=== PATIENT | male | born 2000 | race Caucasian/White ===

== ENCOUNTER 2024-06-20 17:24 | Emergency (ER) | payer SELFPAY ==
--- NOTE | ~2024-06-20 | XR_ITS ---
XR chest 2V DATE: 06/20/2024 18:57 INDICATION: Chest pain TECHNIQUE: PA and lateral views COMPARISON: None FINDINGS: Normal heart size. No hilar or mediastinal enlargement. No pulmonary infiltrate or consol idation, pulmonary vascular congestion or pleural effusion or pneumothorax. IMPRESSION: No active cardiopulmonary disease Reviewed, dictated and finalized at location A. [employer]
--- NOTE | 2024-06-20 17:26 | ECG_ITS ---
Test Date: 2024-06-20 17:32:56 Measurements Intervals [place] Rate: 82 P: 74 HI: 158 QRS: 78 QRSD: 113 T: 62 QT: 344 QTc: 404 Interpretive Statements SINUS RHYTHM WITH SINUS ARRHYTHMIA INCOMPLETE RIGHT BUNDLE BRANCH BLOCK BASELINE ARTIFACT- I BORDERLINE ECG No previous ECG available for comparison Electronically Signed On 06-20-2024 18:23:21 DRILL PUNCH OPERATOR by Timur Cope D.O.
[2024-06-20 17:36] VITALS: BP 129/72; PULSE 83; RESP 20; TEMP 36.6; O2SAT 99
[2024-06-20 17:43] LABS: Basophils Percent Auto 0.6 % (0.2-1.2); Eosinophils Absolute Auto 0.1 K/mm3 (0-0.3); Eosinophils Percent Auto 1.7 % (0-4.4); Hemoglobin 14.1 g/dL (14.0-18.0); Immature Granulocyte Absolute 0.01 K/mm3 (0.00-0.031); Immature Granulocyte Percent A 0.2 % (0-0.5); Lymphocytes Absolute Auto 2.32 K/mm3 (0.9-3.2); Lymphocytes Percent Auto 34.8 % (18.3-44.2); Mean Corpuscular HGB Conc 32.8 g/dl (32-36); Mean Corpuscular Hemoglobin 30.5 pg (26-34); Mean Corpuscular Volume 92.9 fl (80-100); Mean Platelet Volume 9.7 fl (7.4-10.4); Monocytes Percent Auto 14.7 % (2.6-8.5); Neutrophils Absolute Auto 3.2 K/mm3 (1.3-6.7); Platelet Count Result 253 k/mm3 (150-375); Red Blood Count 4.63 M/mm3 (4.6-6.20); Red Cell Distribution Width 12.8 % (11.5-14.5); White Blood Count 6.7 K/mm3 (4.5-10.0)
[2024-06-20 17:52] LABS: Alanine Aminotransferase 50 U/L (6-50); Albumin Level 4.8 g/dL (3.5-5.1); Alkaline Phosphatase 92 U/L (38-126); Anion Gap 12 mmol/L (4-12); Aspartate Amino Transferase 78 U/L (17-59); Bilirubin,Total 0.4 mg/dL (0.2-1.3); Blood Urea Nitrogen 11 mg/dL (9-20); Calcium 9.2 mg/dL (8.4-10.2); Carbon Dioxide 27 mmol/L (22-30); Chloride 103 mmol/L (98-107); Estimated CRCL calculation 142 ml/min; Estimated Glomerular Filt Rate > 60; Glucose 91 mg/dL (65-110); Lipase 62 U/L (23-300); Potassium 3.7 mmol/L (3.4-5.0); Sodium 142 mmol/L (137-145)
[2024-06-20 17:53] LABS: Partial Thromboplastin Time 29.6 Seconds (22.3-36.8)
[2024-06-20 18:04] LABS: Troponin I < 0.012 ng/mL (0.000-0.034)
--- NOTE | 2024-06-20 22:06 | PC.NURSE ---
Patient came up to this RN and asked if he could eat. This RN states to patient he cannot eat. Patient then proceeded to walk outside to grab his [employer] order
[2024-06-20 22:20] VITALS: PULSE 65
[2024-06-20 22:21] VITALS: BP 108/72; PULSE 65; RESP 21; O2SAT 98
--- NOTE | 2024-06-20 22:22 | ECG_ITS ---
Test Date: 2024-06-20 22:35:28 Measurements Intervals [place] Rate: 67 P: 65 AR: 158 QRS: 79 QRSD: 120 T: 68 QT: 368 QTc: 391 Interpretive Statements SINUS RHYTHM INCOMPLETE RIGHT BUNDLE BRANCH BLOCK ST ELEVATION IN DIFFUSE LEADS- PROBABLY EARLY REPOLARIZATION BASELINE ARTIFACT- I, II, III, AVR, AVL, AVF BORDERLINE ECG Compared to ECG 06/20/2024 17:32:56 NO SIGNIFICANT CHANGE Electronically Signed On 06-21-2024 05:52:17 MANAGER CONTINUOUS IMPROVEMENT by Timur Cope D.O.
[2024-06-20] MEDS: ASPIRIN 81 MG CHEWABLE TABLET 324 MG PO (22:41)
[2024-06-20 22:42] VITALS: O2SAT 100
[2024-06-20 23:10] LABS: Troponin I < 0.012 ng/mL (0.000-0.034)
[2024-06-20 23:33] VITALS: BP 124/70; PULSE 71; RESP 12; O2SAT 99
[2024-06-20] MEDS: Please add drug allergy info to patient profile. 1 EACH XX (23:35)
[2024-06-20] MEDS: KETOROLAC 15 MG/ML VIAL (*BKC) IV PUSH (23:35)
--- NOTE | 2024-06-20 23:58 | ED.CHESTPAIN ---
HPI - Chest Pain General Chief Complaint: Chest Pain Stated Complaint: chest Pain X 1Week Time Seen by Provider: 06/20/24 22:45 History of Present Illness HPI narrative: 24-year-old male presents emergency department for left-sided chest pain for 6 days. Patient states the chest is worse when he takes a deep breath. He reports a cough for approximately 1 month. States the skin overlying his left chest wall is also tender. He denies fever, hemoptysis, radiating pain, exertional symptoms, shortness of breath, extremity edema, history of VTE. 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 Related Data Allergies Allergy/AdvReac Type Severity Reaction Status Date / Time No Known Allergies Allergy Verified 06/20/24 22:30 Review of Systems Review of Systems: All systems reviewed & are unremarkable except as noted in HPI and below Exam Narrative: GENERAL: Well-appearing, well-nourished, and in no acute distress. HEAD: Normocephalic, atraumatic. EYES: PERRLA and EOMI. ENT: Nares clear, no rhinorrhea or epistaxis. Mucous membranes moist. NECK: Supple. CHEST: Clear to auscultation. No respiratory distress. Tenderness to the left costosternal border with no overlying skin changes HEART: Regular rate and rhythm. No murmur heard. Normal peripheral pulses. ABDOMEN: Soft, nontender, nondistended, normal active bowel sounds. EXTREMITIES: Normal range of motion. No edema. negative Homans bilaterally SKIN: Warm, dry, no rash. NEURO: No focal deficits. Alert and oriented x3 Course Vital Signs Vital signs: Vital Signs Temperature 97.9 F 06/20/24 17:36 Pulse Rate 83 06/20/24 17:36 Respiratory Rate 20 06/20/24 17:36 Blood Pressure 129/72 06/20/24 17:36 Pulse Oximetry 99 06/20/24 17:36 Oxygen Delivery Room Air 06/20/24 17:36 Temperature 97.9 F 06/20/24 17:36 Pulse Rate 71 06/20/24 23:33 Respiratory Rate 12 06/20/24 23:33 Blood Pressure 124/70 06/20/24 23:33 Pulse Oximetry 99 06/20/24 23:33 Oxygen Delivery Room Air 06/20/24 22:42 MDM - Chest Pain MDM Narrative Medical decision making narrative: 24-year-old male presents emergency department for left-sided chest pain for 1 week. Triage vitals are stable. Exam is significant for tenderness to the left costosternal border on palpation. CBC shows no leukocytosis, no anemia. Chemistries are unremarkable. Troponin is undetectable x2. Lipase is normal. Perc is negative. Chest x-ray is unremarkable. EKG shows early repolarization verses diffuse ST elevations concerning for pericarditis. I discussed case with building components designer, Dr. Galindo, reviewed the EKG and felt it was most consistent with early repolarization. Overall patient's presentation is consistent with costochondritis. He was treated with IV Toradol in the ED and ibuprofen was sent to the pharmacy. Advised to follow up with his PCP. Strict ED return precautions discussed. He is agreeable to plan verbalized understanding. Discharged in stable condition. Lab Data 06/20/24 17:32 06/20/24 17:32 Labs: Lab Results 06/20/24 06/20/24 Range/Units 17:32 22:31 WBC 6.7 (4.5-10.0) K/mm3 RBC 4.63 (4.6-6.20) M/mm3 Hgb 14.1 (14.0-18.0) g/dL Hct 43.0 (42.0-52.0) % MCV 92.9 (80-100) fl MCH 30.5 (26-34) pg MCHC 32.8 (32-36) g/dl RDW 12.8 (11.5-14.5) % Plt Count 253 (150-375) k/mm3 MPV 9.7 (7.4-10.4) fl Immature Gran % (Auto) 0.2 (0-0.5) % Neut % (Auto) 48.0 (45.5-73.1) % Lymph % (Auto) 34.8 (18.3-44.2) % [place] % (Auto) 14.7 H (2.6-8.5) % Eos % (Auto) 1.7 (0-4.4) % Baso % (Auto) 0.6 (0.2-1.2) % Lymph # (Auto) 2.32 (0.9-3.2) K/mm3 [place] # (Auto) 1.0 H (0.1-0.6) K/mm3 Eos # (Auto) 0.1 (0-0.3) K/mm3 Baso # (Auto) 0.0 (0.0-0.1) K/mm3 Abs Immat Gran (auto) 0.01 (0.00-0.031) K/mm3 Absolute Neuts (auto) 3.2 (1.3-6.7) K/mm3 Absolute Nucleated RBC 0.000 (0.0-0.012) K/mm3 Nucleated RBC % 0.0 (0.0-0.2) % PT 13.0 (11.1-14.7) Seconds INR 1.0 APTT 29.6 (22.3-36.8) Seconds Sodium 142 (137-145) mmol/L Potassium 3.7 (3.4-5.0) mmol/L Chloride 103 (98-107) mmol/L Carbon Dioxide 27 (22-30) mmol/L Anion Gap 12 (4-12) mmol/L BUN 11 (9-20) mg/dL Creatinine 0.80 (0.7-1.3) mg/dL Estim Creat Clear Calc 142 ml/min Estimated GFR > 60 (59 - ) Glucose 91 (65-110) mg/dL Calcium 9.2 (8.4-10.2) mg/dL Total Bilirubin 0.4 (0.2-1.3) mg/dL AST 78 H (17-59) U/L ALT 50 (6-50) U/L Alkaline Phosphatase 92 (38-126) U/L Troponin I < 0.012 < 0.012 (0.000-0.034) ng/mL Total Protein 8.0 (6.3-8.2) g/dL Albumin 4.8 (3.5-5.1) g/dL Lipase 62 (23-300) U/L Discharge Plan Discharge Clinical Impression: Acute costochondritis Cough Qualifiers: Cough type: acute Qualified Code(s): R05.1 - Acute cough Patient Disposition: Home, Self-Care Condition: Stable Instructions: Antibiotic Form, Costochondritis (ED) Additional Instructions: Your evaluated in the emergency department for chest pain. Your workup and presentation is consistent with costochondritis as discussed. Please take the ibuprofen as needed for chest pain. Take the benzonatate as needed cough. Follow up with her primary care provider. Return to the emergency department if you develop changing or worsening chest pain, fever, shortness of breath or other concerning symptoms. Prescriptions: New benzonatate 200 mg capsule 200 mg PO BID PRN (Reason: cough) Qty: 14 0RF ibuprofen 800 mg tablet 800 mg PO TID PRN (Reason: pain) Qty: 20 0RF Follow-up/Referrals: PHYSICIAN NOT ON STAFF,NONSTAFF [Primary Care Provider] -
[2024-06-21 00:25] VITALS: BP 127/73; PULSE 63; RESP 19; O2SAT 99
== END 2024-06-21 00:27 | disposition home or self-care (01) ==
PROVIDERS: Emergency Medicine; Emergency Provider Physician Assistant
DX: M94.0 Chondrocostal junction syndrome [Tietze] (principal); R05.1 Acute cough; I45.10 Unspecified right bundle-branch block
CPT/HCPCS: 36415; 71046; 80053; 83690; 84484; 85025; 85610; 85730; 93005; 96374; 99284; A9270; J1885